=== PATIENT | female | born 1970 | race Caucasian/White ===

== ENCOUNTER → 2018-08-29 | Outpatient (CLI) | payer OTHER ==
[~2018-08-29] MED LIST: LIDOCAINE 1% Multi-Dose 50 ML VIAL. INJ ONE
--- NOTE | 2018-08-29 11:39 | RAD ---
ULTRASOUND-GUIDED FINE-NEEDLE THYROID BIOPSY OF THE RIGHT LOBE OF THE THYROID GLAND Indications: 2.2 cm solid nodule of the mid to inferior aspect of the right lobe seen on previous ultrasound. Procedure: The procedure and possible complications including bleeding and infection were explained. The patient provided both verbal and written consent. A timeout was performed which confirmed the name of the patient and date of and type of procedure and the side of the procedure. Sonography demonstrated a 2.2 cm solid nodule of the mid inferior aspect of the right lobe of the thyroid gland. An appropriate skin nahomy was placed over the nodule. The right side of the neck was prepped with ChloraPrep and draped in the usual sterile fashion. A total of 2 cc of 1% lidocaine was utilized for local anesthesia. Using sterile technique and ultrasound guidance, 4 separate 25-gauge fine-needle aspirations of the nodule was performed. Sonographic spot images of each biopsy were performed. Each sample was given to the box lining machine feeder for further processing at the time of the biopsy. Postbiopsy scanning demonstrates no significant hematoma. The patient tolerated the procedure well without complication. IMPRESSION: Ultrasound-guided fine-needle aspiration of the 2.2 cm solid nodule of the mid to inferior aspect of the right lobe of the thyroid gland was performed without complication. Pathology is pending. Follow-up will be with the patient's physician. ULTRASOUND-GUIDED FINE-NEEDLE THYROID BIOPSY OF THE RIGHT LOBE OF THE THYROID GLAND Indications: 1.3 cm complex solid nodule of the inferior pole of the right lobe of the thyroid gland seen on previous ultrasound. Procedure: The procedure and possible complications including bleeding and infection were explained. The patient provided both verbal and written consent. A timeout was performed which confirmed the name of the patient and date of and type of procedure and the side of the procedure. Sonography demonstrated a 1.3 cm complex solid nodule of the inferior pole of the right lobe of the thyroid gland. An appropriate skin nahomy was placed over the nodule. The right side of the neck was prepped with ChloraPrep and draped in the usual sterile fashion. A total of 2 cc of 1% lidocaine was utilized for local anesthesia. Using sterile technique and ultrasound guidance, 4 separate 25-gauge fine-needle aspirations of the nodule was performed. Sonographic spot images of each biopsy were performed. Each sample was given to the box lining machine feeder for further processing at the time of the biopsy. Postbiopsy scanning demonstrates no significant hematoma. The patient tolerated the procedure well without complication. IMPRESSION: Ultrasound-guided fine-needle aspiration of the 1.3 cm complex solid nodule of the inferior pole of the right lobe of the thyroid gland was performed without complication. Pathology is pending. Follow-up will be with the patient's physician. [id number] follow-up sonogram of the thyroid gland is recommended as well to follow the other 2 smaller nodules of the right lobe and the small nodule of of the left lobe of the thyroid gland.
--- NOTE | 2018-09-04 18:08 | PATHOLOGY ---
Note [facility] Accession Number: [id number] TESTS RESULT FLAG UNITS REF RANGE LAB Clinician Provided Cytology Information No. of containers..01 Other (Miscellaneous) Source: RIGHT THYROID DIAGNOSIS: RIGHT THYROID INCONCLUSIVE. CELLULAR ASPIRATE WITH ABUNDANT FOLLICULAR CELLS,SCANT COLLOID, AND SOME HURTHLE CELLS WITH ATYPIA.THE DIFFERENTIAL DIAGNOSIS INCLUDES ADENOMATOUS NODULE AND FOLLICULAR NEOPLASM. THIS EVALUATION INCLUDES EXAMINATION OF A CELL BLOCK. THE CASE IS ALSO EXAMINED BY DR. BATEMAN, CYTOPATHOLOGIST, WHO CONCURS WITH THE DIAGNOSIS. Pathologist ICD10: 02 E04.1 Signed out by: Dc Quezada MD, Pathologist NPI- [id number] Performed by: Mari Li, Chromosomal Disorders Counselor ([facility]) Gross description: 01 30ML, RED, CLEAR /LCS FLAG LEGEND: L-Low Normal,H-High Normal,LL-Alert Low,HH-Alert High <-Panic Low,>-Panic High,A-Abnormal,AA-Critical Abnormal Performed at: [facility] [address] [place] [address] Steven Baez MD, [address] [facility] [address] [place] [address] Dc Quezada MD, Specimen Comment: A courtesy copy of this report has been sent to Specimen Comment: [phone]. Specimen Comment: Report sent to Specimen Comment: A duplicate report has been generated due to demographic updates. Performed at: [address], [place], [place] [id number] MD Steven Baez MD Phone: [phone]
== END | disposition home or self-care (01) ==
LOC: US 10:21
PROVIDERS: ATTEND Nurse Practitioner Family
DX: E04.1 Nontoxic single thyroid nodule (principal); Z88.8 Allergy status to other drugs, medicaments and biological substances; Z91.048 Other nonmedicinal substance allergy status
CPT/HCPCS: 10022; 76942; 88173; 88305

== ENCOUNTER → 2018-09-10 | Outpatient (CLI) | payer OTHER ==
--- NOTE | 2018-09-10 10:25 | KCIC ---
Barium esophagram History: Dysphagia Comparison: None. Findings: Barium esophagram was performed. Overall caliber of the esophagus is within normal limits. The is very small sliding hiatal hernia, no significant stricture identified. With patient in prone oblique position, there is delayed emptying of the esophagus with long-standing column of contrast remaining in the esophagus to patient was placed in upright position, some tertiary contractions noted in. There is more normal emptying of the esophagus with patient in an upright position. Difficult to appreciate on all images, there are a few small foci of mucosal irregularity of the more proximal esophagus with patient in prone oblique position. There was normal relaxation of the lower esophageal sphincter. Fluoroscopy time: 1 minute 32 seconds 39 images Impression: 1. There is decreased effective propulsive motility of the esophagus most notable with patient in prone oblique position, long-standing column of contrast in esophagus which subsequently emptied with patient in upright position. 2. There is very small sliding hiatal hernia, no significant stricture. 3. Difficult to visualize on all images, there were some small foci of mucosal irregularity of the proximal esophagus, consideration of mild esophagitis. Electronically signed by: Dalton Salgado MD (09/10/2018 10:22 AM) [id number]
== END | disposition home or self-care (01) ==
LOC: KCIC 08:55
PROVIDERS: ATTEND Physician Assistant
DX: K44.9 Diaphragmatic hernia without obstruction or gangrene (principal); K22.4 Dyskinesia of esophagus
CPT/HCPCS: 74220